=== PATIENT | male | born 1945 | race Caucasian/White ===

== ENCOUNTER 2017-11-11 23:05 | Observation (INO) | payer MEDICARE ==
[~2017-11-11] VITALS: Ht 175.3 cm; Wt 81.6 kg
[~2017-11-11 23:05] MED LIST: CIPRO500 MG PO; TYLENOL WITH C1 EACH PO
[2017-11-11 23:40] LABS: BASOPHILS # (AUTO) 0.1 (0.0-0.1); BASOPHILS % 1.4 % (0.0-1.0); EOSINOPHILS # (AUTO) 0.4 (0.0-0.4); EOSINOPHILS % 4.3 % (0.0-6.0); HEMATOCRIT 38.5 % (38.2-49.6); HEMOGLOBIN 13.2 g/dL (14.0-18.0); LYMPHOCYTES # (AUTO) 1.6 (1.0-3.2); LYMPHOCYTES % 19.2 % (18.0-39.1); MEAN CORPUSCULAR HEMOGLOBIN 29.8 pg (28-32); MEAN CORPUSCULAR HGB CONC 34.3 g/dL (31-35); MEAN CORPUSCULAR VOLUME 86.9 fL (81-99); MONOCYTES # (AUTO) 0.7 (0.2-0.8); MONOCYTES % 8.7 % (4.4-11.3); NEUTROPHILS # (AUTO) 5.6 (2.1-6.9); NEUTROPHILS % 66.2 % (38.7-80.0); PLATELET COUNT 283 x10e3/uL (140-360); RED BLOOD COUNT 4.43 x10e6/uL (4.3-5.7); RED CELL DISTRIBUTION WIDTH 13.6 % (11.7-14.4)
[2017-11-11 23:42] LABS: BILIRUBIN,URINE NEGATIVE (NEGATIVE); CLARITY,URINE CLEAR (CLEAR); COLOR,URINE YELLOW (YELLOW); KETONES,URINE TRACE (NEGATIVE); LEUKOCYTE ESTERASE ,URINE NEGATIVE (NEGATIVE); NITRITE,URINE NEGATIVE (NEGATIVE); PROTEIN,URINE DIPSTICK NEGATIVE (NEGATIVE); URINE UROBILINOGEN 0.2 mg/dL (0.2 - 1)
[2017-11-11] MEDS ORDERED: GABAPENTIN300 MG PO (23:45)
[2017-11-11] MEDS ORDERED: HYDROCHLOROTHIA25 MG PO (23:45)
[2017-11-11] MEDS ORDERED: LISINOPRIL2.5 MG PO (23:45)
[2017-11-11] MEDS ORDERED: TRAZODONE HCL50 MG PO (23:46)
[2017-11-11] MEDS ORDERED: GLIMEPIRIDE2 MG PO (23:47)
[2017-11-11] MEDS ORDERED: OMEPRAZOLE40 MG PO (23:47)
[2017-11-11] MEDS ORDERED: ATORVASTATIN CA20 MG PO (23:47)
[2017-11-11] MEDS ORDERED: PENTASA500 MG PO (23:48)
[2017-11-11] MEDS ORDERED: ASPIR 8181 MG PO (23:49)
[2017-11-11] MEDS ORDERED: LANTUS 3ML100 UNITS/ SC (23:49)
[2017-11-11 23:53] LABS: RBC,URINE 0-5 /HPF (0-5); WBC,URINE (MAN) 0-5 /HPF (0-5)
[2017-11-11] MEDS ORDERED: DIATRIZOATE MEGL/DIATRIZOA SOD 30 ML BTL PO ONE (23:53)
[2017-11-11 23:54] LABS: EPITHELIAL CELLS,URINE RARE /LPF
[2017-11-11 23:57] LABS: ALBUMIN 4.1 g/dL (3.5-5.0); ALBUMIN/GLOBULIN RATIO 1.1 (0.8-2.0); ANION GAP 18.3 mmol/L (8-16); CALCIUM 9.2 mg/dL (8.4-10.2); CREATININE, SERUM 2.12 mg/dL (0.72-1.25); POTASSIUM 4.3 mmol/L (3.5-5.1)
[2017-11-12] VITALS (7 sets, daily range): BP systolic 129–145; BP diastolic 60–71
[2017-11-12 01:27] LABS: INR 1.01; PROTHROMBIN TIME 12.5 seconds (11.9-14.5)
--- NOTE | 2017-11-12 01:30 | Diagnostic Imaging Report ---
EXAM: CT ABDOMEN AND PELVIS without IV CONTRAST INDICATION: Diarrhea, black stools COMPARISON: CT of the abdomen and pelvis April 06, 2016 TECHNIQUE: The abdomen and pelvis were scanned using a multidetector helical scanner. Coronal and sagittal reformations were obtained. Routine protocol performed. IV Contrast: None Oral Contrast: Gastrografin CTDIvol has been reviewed. It is below the limits set by the Radiation Protocol Committee (RPC). FINDINGS: LOWER THORAX: No consolidations LIVER: No masses BILIARY: Normal gallbladder. No ductal dilation. SPLEEN: No masses PANCREAS: No masses ADRENALS: No nodules RIGHT KIDNEY: No nephroureterolithiasis or hydronephrosis. LEFT KIDNEY: No nephroureterolithiasis or hydronephrosis. GI TRACT: Nonspecific mild wall thickening of the mid transverse colon, similar in appearance to 2016. There are a few sigmoid colon diverticula. VESSELS: Moderate atherosclerotic changes of the abdominal aorta with stable focal outpouching up to 2.3 cm. PERITONEUM/RETROPERITONEUM: No free air or fluid LYMPH NODES: No lymphadenopathy REPRODUCTIVE ORGANS: Normal BLADDER: Lobulated contour of the bladder. No wall thickening. SOFT TISSUES: Normal BONES: No suspicious bone lesions. Advanced degenerative changes L4/L5. IMPRESSION: Nonspecific mild wall thickening of the mid transverse colon, similar in appearance to 2016. Few scattered colonic diverticula without evidence of diverticulitis. No bowel obstruction. Signed by: Dr. Kait Vasquez M.D. on 11/12/2017 1:27 AM
--- NOTE | 2017-11-12 01:31 | Diagnostic Imaging Report ---
EXAM: CHEST 2 VIEWS, PA and lateral INDICATION: Diarrhea, black stools COMPARISON: None FINDINGS: LINES/TUBES: None LUNGS: No consolidations or edema. Volume loss of the right lung compared to the left likely from prior surgery. Scarring right lung base. PLEURA: No effusions or pneumothorax. HEART AND MEDIASTINUM: Normal size and contour. BONES AND SOFT TISSUES: No acute findings. Old right-sided rib fractures. IMPRESSION: No acute thoracic abnormality. Signed by: Dr. Kait Vasquez M.D. on 11/12/2017 1:28 AM
[2017-11-12] MEDS ORDERED: ONDANSETRON HCL INJ 2 MG/ML VIAL IV PRN (02:15)
[2017-11-12] MEDS ORDERED: DEXTROSE 50% SYRINGE 50 ML IV PRN (02:15)
[2017-11-12] MEDS ORDERED: SODIUM CHLORIDE 0.9% 1000ML 1,000 ML ONE (02:15)
[2017-11-12] MEDS ORDERED: MORPHINE SULFATE 2 MG/ML SYR IV PRN (02:15)
[2017-11-12] MEDS: SODIUM CHLORIDE 0.9% 1000ML 1,000 ML IV SCH ×3 (02:19→17:50)
--- OUTSIDE RECORDS SUMMARY | 2017-11-12 03:15 | XMS REPORT ---
Author [facility] Address Unknown Phone Unavailable Care Team Providers Care Public Defender Name Role Phone МАРИНА RIVERA Unavailable Unavailable Problems This patient has no known problems. Allergies, Adverse Reactions, Alerts This patient has no known allergies or adverse reactions. Medications This patient has no known medications. Results Test Description Test Time Test Comments Text Results Atomic Results Result Comments CHEST 2 VIEWS [place] [address] Patient Name: JUAN MCKEON MR #: [id number] : 1945 Age/Sex: 72/M Req #: [id number] Adm Physician: Ordered by: МАРИНА RIVERA MD Report #: [id number] Location: ER Room/Bed: Procedure: [id number] DX/CHEST 2 VIEWS Exam Date: Exam Time: REPORT STATUS: Signed EXAM: CHEST 2 VIEWS, PA and lateral INDICATION: Diarrhea, black stools COMPARISON: None FINDINGS: LINES/TUBES: None LUNGS: No consolidations or edema. Volume loss of the right lung compared to the left likely from prior surgery. Scarring right lung base. PLEURA: No effusions or pneumothorax. HEART AND MEDIASTINUM: Normal size and contour. BONES AND SOFT TISSUES: No acute findings. Old right-sided rib fractures. IMPRESSION: No acute thoracic abnormality. Signed by: Dr. Alba Salguero M.D. on 11/12/2017 1:28 AM Dictated By: ALBA SALGUERO MD 7 Transcribed By: AG on 11/12/17127 COPY TO: МАРИНА RIVERA MD CT ABDOMEN/PELVIS WO [place] [address] Patient Name: JUAN MCKEON MR #: [id number] : 1945 Age/Sex: 72/M Req #: [id number] Adm Physician: Ordered by: МАРИНА RIVERA MD Report #: [id number] Location: ER Room/Bed: Procedure: [id number] CT/CT ABDOMEN/PELVIS WO Exam Date: Exam Time: REPORT STATUS: Signed EXAM: CT ABDOMEN AND PELVIS without IV CONTRAST INDICATION: Diarrhea, black stools COMPARISON: CT of the abdomen and pelvis April 06, 2016 TECHNIQUE: The abdomen and pelvis were scanned using a multidetector helical scanner. Coronal and sagittal reformations were obtained. Routine protocol performed. IV Contrast: None Oral Contrast: Gastrografin CTDIvol has been reviewed. It is below the limits set by the Radiation Protocol Committee (RPC). FINDINGS: LOWER THORAX: No consolidations LIVER: No masses BILIARY: Normal gallbladder. No ductal dilation. SPLEEN: No masses PANCREAS: No masses ADRENALS: No nodules RIGHT KIDNEY: No nephroureterolithiasis or hydronephrosis. LEFT KIDNEY: No nephroureterolithiasis or hydronephrosis. GI TRACT: Nonspecific mild wall thickening of the mid transverse colon, similar in appearance to 2016. There are a few sigmoid colon diverticula. VESSELS: Moderate atherosclerotic changes of the abdominal aorta with stable focal outpouching up to 2.3 cm. PERITONEUM/RETROPERITONEUM: No free air or fluid LYMPH NODES: No lymphadenopathy REPRODUCTIVE ORGANS: Normal BLADDER: Lobulated contour of the bladder. No wall thickening. SOFT TISSUES: Normal BONES: No suspicious bone lesions. Advanced degenerative changes L4/L5. IMPRESSION: Nonspecific mild wall thickening of the mid transverse colon, similar in appearance to 2016. Few scattered colonic diverticula without evidence of diverticulitis. No bowel obstruction. Signed by: Dr. Alba Salguero M.D. on 11/12/2017 1:27 AM Dictated By: ALBA SALGUERO MD 6 Transcribed By: AG on 11/12/17126 COPY TO: МАРИНА RIVERA MD
[2017-11-12] MEDS ORDERED: PANTOPRAZOLE SOD 40 MG TABEC PO SCH (07:30)
[2017-11-12] MEDS: INSULIN REGULAR, HUMAN 100 UNIT/1 ML 3ML VIAL SQ SCH ×4 (07:30→20:37)
[2017-11-12] MEDS ORDERED: HYDROCHLOROTHIAZIDE 25 MG TAB PO SCH (09:00)
[2017-11-12] MEDS ORDERED: GABAPENTIN 300 MG CAP PO SCH (15:00)
[2017-11-12] MEDS ORDERED: CLONIDINE HCL 0.1 MG TAB PO PRN (18:15)
[2017-11-12] MEDS: GABAPENTIN 300 MG CAP PO SCH (20:37)
[2017-11-12] MEDS ORDERED: ATORVASTATIN 20 MG TAB PO SCH (21:00)
[2017-11-12] MEDS ORDERED: INSULIN DETEMIR 100 UNIT/ML PEN SQ SCH (21:00)
[2017-11-12] MEDS ORDERED: TRAZODONE HCL 50 MG TAB PO SCH (21:00)
[2017-11-12] MEDS ORDERED: ATORVASTATIN 40 MG TAB PO SCH (21:00)
[2017-11-13] VITALS (8 sets, daily range): BP systolic 130–155; BP diastolic 63–78
[2017-11-13] MEDS: SODIUM CHLORIDE 0.9% 1000ML 1,000 ML IV SCH (07:15)
[2017-11-13 07:22] LABS: BASOPHILS # (AUTO) 0.1 (0.0-0.1); BASOPHILS % 1.8 % (0.0-1.0); EOSINOPHILS # (AUTO) 0.4 (0.0-0.4); EOSINOPHILS % 7.2 % (0.0-6.0); HEMATOCRIT 36.2 % (38.2-49.6); HEMOGLOBIN 12.2 g/dL (14.0-18.0); LYMPHOCYTES # (AUTO) 1.2 (1.0-3.2); MEAN CORPUSCULAR HEMOGLOBIN 29.8 pg (28-32); MEAN CORPUSCULAR HGB CONC 33.7 g/dL (31-35); MEAN CORPUSCULAR VOLUME 88.3 fL (81-99); MONOCYTES # (AUTO) 0.5 (0.2-0.8); MONOCYTES % 9.7 % (4.4-11.3); NEUTROPHILS # (AUTO) 3.3 (2.1-6.9); NEUTROPHILS % 59.1 % (38.7-80.0); PLATELET COUNT 254 x10e3/uL (140-360); RED CELL DISTRIBUTION WIDTH 13.8 % (11.7-14.4)
[2017-11-13] MEDS: INSULIN REGULAR, HUMAN 100 UNIT/1 ML 3ML VIAL SQ SCH ×2 (07:30→11:30)
[2017-11-13] MEDS ORDERED: PANTOPRAZOLE SOD 40 MG TABEC PO SCH (07:30)
[2017-11-13 07:38] LABS: CALCIUM 8.9 mg/dL (8.4-10.2); CREATININE, SERUM 1.42 mg/dL (0.72-1.25); MAGNESIUM 1.6 MG/DL (1.3-2.1)
[2017-11-13] MEDS ORDERED: GLIMEPIRIDE 2 MG TAB PO SCH (08:00)
[2017-11-13] MEDS ORDERED: LISINOPRIL 2.5 MG TAB PO SCH (09:00)
[2017-11-13] MEDS ORDERED: MESALAMINE 500 MG CAPCR PO SCH (09:00)
[2017-11-13] MEDS ORDERED: HYDROCHLOROTHIAZIDE 25 MG TAB PO SCH (09:00)
[2017-11-13] MEDS ORDERED: ASPIRIN 81 MG CHEW TAB PO SCH (09:00)
[2017-11-13] MEDS ORDERED: MESALAMINE 400 MG CAP PO SCH (09:00)
[2017-11-13] MEDS: GABAPENTIN 300 MG CAP PO SCH (09:05)
--- NOTE | 2017-11-13 16:17 | Discharge Summary ---
PRIMARY CARE DOCTOR: Dr. Pattie Lopez FINAL DIAGNOSIS: Acute renal failure due to diarrhea and dehydration. SECONDARY DIAGNOSES 1. Colitis, otherwise unspecified. 2. Diabetes. CONSULTANTS: None. PROCEDURES/STUDIES PERFORMED: Computerized tomography scan of the abdomen and pelvis. HISTORY: Per H and P. HOSPITAL COURSE: The patient was admitted and hydrated. His creatinine improved. CT showed transverse colon nonspecific wall thickening unchanged from 2016. The patient has seen a GI specialist, and is on daily mesalamine. He will continue that. Antibiotic is not indicated at this time. The patient only had 2 small loose stools yesterday and only 1 today. The patient will follow up with PCP and his GI doctor. I have updated his primary care doctor as well. CONDITION ON DISCHARGE: Stable. DISCHARGE MEDICATIONS: Please see medication reconciliation form. The patient was seen and examined today. VERONICA COY M.D. Job#: [id number] RI cc:PATTIE LOPEZ MD
== END 2017-11-13 16:11 | disposition home or self-care (01) ==
LOC: ER 23:05 → MED/SURG3 11-12 03:12
PROVIDERS: ADMIT Internal Medicine; ATTEND Internal Medicine
DX: N17.9 Acute kidney failure, unspecified (principal); R19.7 Diarrhea, unspecified; E11.9 Type 2 diabetes mellitus without complications; E78.5 Hyperlipidemia, unspecified; E86.0 Dehydration; K52.9 Noninfective gastroenteritis and colitis, unspecified
CPT/HCPCS: 36415 ×3; 71046; 74176; 80048; 80053; 81001; 82150; 82270; 82948 ×2; 83690; 83735; 85025 ×2; 85610; 85730; 86850; 86900 ×2; 96361; 99284; G0378 ×2; J2270; J7030

== ENCOUNTER 2019-02-11 14:14 | Emergency (ER) | payer MEDICARE ==
[~2019-02-11] VITALS: Ht 175.3 cm; Wt 81.6 kg
[~2019-02-11 14:14] MED LIST changes: +ASPIR 8181 MG PO; +ATORVASTATIN CA20 MG PO; +GABAPENTIN300 MG PO; +GLIMEPIRIDE2 MG PO; +HYDROCHLOROTHIA25 MG PO; +LANTUS 3ML100 UNITS/ SC; +LISINOPRIL2.5 MG PO; +OMEPRAZOLE40 MG PO; +PENTASA500 MG PO; +TRAZODONE HCL50 MG PO
--- OUTSIDE RECORDS SUMMARY | 2019-02-11 14:17 | XMS REPORT | Clinical Summary ---
Author Author [facility] Address Unknown Phone Unavailable Care Team Providers Care Brick Grader Name Role Phone Trinity Reagan PCP Unavailable Allergies No Known Allergies Medications End Date Status Medication Sig Dispensed Refills Start Date Active aspirin 81 MG EC tablet Take 81 mg by 0 mouth daily. Active gabapentin (NEURONTIN) Take 300 mg 0 300 MG capsule by mouth 3 (three) times daily. Active hydrochlorothiazide Take 50 mg by 0 (HYDRODIURIL) 25 MG mouth daily. tablet Active HYDROcodone-acetaminophen Take 1 tablet 0 (NORCO 7.5-325) 7.5-325 by mouth mg per tablet every 6 (six) hours as needed for Pain. Active insulin glargine (LANTUS) Inject 40 0 100 unit/mL injection Units subcutaneousl y nightly. Use as directed Active lansoprazole (PREVACID) Take 15 mg by 0 15 MG capsule mouth daily. Active lisinopril Take 2.5 mg 0 (PRINIVIL,ZESTRIL) 2.5 MG by mouth tablet daily. Active metFORMIN (GLUCOPHAGE) Take 1,000 mg 0 1000 MG tablet by mouth 2 (two) times daily with breakfast and dinner. Active multivitamin per tablet Take 1 tablet 0 by mouth daily. Active pioglitazone (ACTOS) 15 Take 15 mg by 0 MG tablet mouth daily. Active pravastatin (PRAVACHOL) Take 40 mg by 0 40 MG tablet mouth daily. Active topiramate (TOPAMAX) 25 Take 25 mg by 0 MG tablet mouth 2 (two) times daily. Active traZODone (DESYREL) 50 MG Take 50 mg by 0 tablet mouth nightly. Active tiZANidine (ZANAFLEX) 4 Take 1 tablet 40 tablet 1 08/28/201 MG tablet (4 mg total) 5 by mouth nightly. Active Problems Problem Noted Date Non compliance w medication regimen 04/28/2018 Essential hypertension 04/28/2018 Type 2 diabetes mellitus with complication, with long-term current use of 04/28/2018 insulin Hyperglycemia 04/28/2018 Spinal stenosis, lumbar region, with neurogenic claudication 08/28/2014 Encounters Care Team Description Date Type Specialty Sydney, Zehra Navarrete DO Hyperglycemia (Primary Dx); Type 2 diabetes mellitus with complication, with long-term current use of insulin (HCC); Essential hypertension; Non compliance w medication regimen 04/28/2018 Emergency Emergency Medicine 04/28/2018 Orders Only General Internal Medicine after 02/10/2018 Social History Date Tobacco Use Types Packs/Day Years Used Never Smoker Smokeless Tobacco: Never Used Alcohol Use Drinks/Week oz/Week Comments No Sex Assigned at Date Recorded Not on file Industry Job Start Date Occupation Not on file Not on file Not on file Travel End Travel History Travel Start No recent travel history available. Last Filed Vital Signs Time Taken Vital Sign Reading 04/28/2018 1:53 PM CDT Blood Pressure 157/66 04/28/2018 1:53 PM CDT Pulse 68 04/28/2018 11:52 AM CDT Temperature 36.4 C (97.5 F) 04/28/2018 1:53 PM CDT Respiratory Rate 18 04/28/2018 1:53 PM CDT Oxygen Saturation 97% - Inhaled Oxygen - Concentration 04/28/2018 11:52 AM CDT Weight 78.9 kg (174 lb) 04/28/2018 11:52 AM CDT Height 175.3 cm (5' 9") 04/28/2018 11:52 AM CDT Body Mass Index 25.7 Plan of Treatment Not on file Implants Device Identifier Shelf Expiration Date Model / Serial / Lot Implanted Type Area Manufactur er 09/01/2015 [id number] / / [id number] Sealant,Floseal Hemostatic Matrix Cement/Tuan N/A: Back SALDIVAR 10ml - [id number] ler/[employer]hes[employer] Implanted: Qty: 1 on 08/28/2014 by Dain Ang MD [employer] Procedures Comments Procedure Name Priority Date/Time Associated Diagnosis POCT-GLUCOSE METER Routine 04/28/2018 1:26 PM CDT BASIC METABOLIC PANEL (7) STAT 04/28/2018 1:25 PM CDT ECG 12-LEAD Routine 04/28/2018 12:40 PM CDT Procedure Note - Interface, External Ris In - 04/28/2018 12:47 PM CDT Ventricula r Rate 75 BPM Atrial Rate 75 BPM P-R Interval 172 ms QRS Duration 84 ms Q-T Interval 404 ms QTC Calculatio n(Bazett) 451 ms P Mesa 47 degrees R Mesa 52 degrees T Mesa 62 degrees Normal sinus rhythm Normal ECG No previous ECGs available ECG 12-LEAD STAT 04/28/2018 12:40 PM CDT URINALYSIS W/ MICROSCOPIC STAT 04/28/2018 12:15 PM CDT BLOOD GAS, VENOUS STAT 04/28/2018 12:02 PM CDT CBC W/PLT COUNT & AUTO STAT 04/28/2018 DIFFERENTIAL 12:01 PM CDT KETONE, BLOOD STAT 04/28/2018 12:01 PM CDT PHOSPHORUS STAT 04/28/2018 12:01 PM CDT MAGNESIUM STAT 04/28/2018 12:01 PM CDT BASIC METABOLIC PANEL (7) STAT 04/28/2018 12:01 PM CDT CBC W/PLT COUNT & AUTO STAT 04/28/2018 DIFFERENTIAL 12:01 PM CDT POCT-GLUCOSE METER Routine 04/28/2018 11:52 AM CDT after 02/10/2018 Results * POC-Glucose meter (04/28/2018 1:26 PM CDT) Only the most recent of 2 results within the time period is included. POC-Glucose Meter >500 ()Comment: OUTSIDE 70 - 110 mg/dL [facility] MEASURING RANGETESTED AT [address] [address] Specimen Blood Performing Organization Address City/State/Zipcode Phone Number [address] [address] [facility] * Basic metabolic panel (Na, K+, Cl, CO2, Glu, Ca, BUN, Cr) (04/28/2018 1:25 PM CDT) Only the most recent of 2 results within the time period is included. Sodium 128 (L) 136 - 145 meq/L [facility] Potassium 4.1 3.5 - 5.1 meq/L [facility] Chloride 95 (L) 98 - 107 meq/L [facility] CO2 25 22 - 29 meq/L [facility] BUN 32 (H) 7 - 21 mg/dL [facility] Creatinine 1.71 (H) 0.57 - 1.25 mg/dL [facility] Glucose 541 (HH) 70 - 105 mg/dL [facility] Calcium 8.7 8.4 - 10.2 mg/dL [facility] EGFR 40Comment: ESTIMATED GFR IS mL/min/1.73 sq m [facility] NOT ACCURATE CREATININE [facility] CLEARANCE IN PREDICTING GLOMERULAR FILTRATION RATE. ESTIMATED GFR IS NOT APPLICABLE FOR DIALYSIS PATIENTS. Specimen Blood Performing Organization Address City/State/Zipcode Phone Number [facility] [address] [place] [address] [facility] * ECG 12 lead (04/28/2018 12:40 PM CDT) Specimen Narrative Performed At Ventricular Rate 75 BPM GE MUSE Atrial Rate 75 BPM P-R Interval 172 ms QRS Duration 84 ms Q-T Interval 404 ms QTC Calculation(Bazett) 451 ms P Mesa 47 degrees R Mesa 52 degrees T Mesa 62 degrees Normal sinus rhythm Normal ECG No previous ECGs available Confirmed by Baldomero MARINO, RALEIGH ([id number]) on 04/28/2018 2:20:36 PM Procedure Note Interface, External Ris In - 04/28/2018 2:20 PM CDT Ventricular Rate 75 BPM Atrial Rate 75 BPM P-R Interval 172 ms QRS Duration 84 ms Q-T Interval 404 ms QTC Calculation(Bazett) 451 ms P Mesa 47 degrees R Mesa 52 degrees T Mesa 62 degrees Normal sinus rhythm Normal ECG No previous ECGs available Confirmed by Baldomero MARINO BASANT ([id number]) on 04/28/2018 2:20:36 PM Performing Organization Address City/[facility] Phone Number MIKAYLA [facility] * Urinalysis w/Microscopic (04/28/2018 12:15 PM CDT) Color, UA Yellow [facility] Clarity, UA Clear [facility] Specific [place], UA 1.017 1.001 - 1.035 [facility] pH, UA 6.0 5.0 - 8.0 [facility] Protein, UA Negative Negative [facility] Glucose, UA >1000 mg/dL (A) Negative [facility] Ketones, UA Negative Negative [facility] Bilirubin, UA Negative Negative [facility] Blood, UA Negative Negative [facility] Nitrite, UA Negative Negative [facility] Leukocytes, UA Negative Negative [facility] Urobilinogen, UA 0.2 0.2 - 1.0 mg/dL [facility] RBC, UA <1 /HPF [facility] WBC, UA <1 /HPF [facility] Specimen Source [facility] Specimen Urine Performing Organization Address City/[facility] Phone Number [facility] [address] [place] [address] [facility] * Blood gas, venous (04/28/2018 12:02 PM CDT) pH, [place] 7.40 7.32 - 7.42 [facility] pCO2, [place] 48 41 - 51 mmHg [facility] pO2, [place] 43 (H) 25 - 40 mmHg [facility] O2 Sat, [place] 78.7 (H) 40.0 - 70.0 % [facility] HCO3, [place] 29 21 - 29 mmol/L [facility] Base Excess, [place] 3.3 (H) -2.0 - 3.0 mmol/L [facility] Patient Temperature 37.0 C [facility] FIO2 100.0 % [facility] Specimen Blood Performing Organization Address City/State/Zipcode Phone Number [facility] [address] [place] [address] [facility] * CBC with platelet count + automated diff (04/28/2018 12:01 PM CDT) WBC 7.9 3.5 - 10.5 K/L [facility] RBC 4.34 (L) 4.63 - 6.08 M/L [facility] Hemoglobin 12.6 (L) 13.7 - 17.5 GM/DL [facility] Hematocrit 37.9 (L) 40.1 - 51.0 % [facility] MCV 87.3 79.0 - 92.2 fL [facility] MCH 29.0 25.7 - 32.2 pg [facility] MCHC 33.2 32.3 - 36.5 GM/DL [facility] RDW 12.0 11.6 - 14.4 % [facility] Platelets 315 150 - 450 K/CU MM [facility] MPV 9.9 9.4 - 12.4 fL [facility] nRBC 0 0 - 0 /100 WBC [facility] % Neutros 70 % [facility] % Lymphs 16 % [facility] % Monos 7 % [facility] % Eos 4 % [facility] % Baso 1 % [facility] # Neutros 5.58 (H) 1.78 - 5.38 K/L [facility] # Lymphs 1.29 (L) 1.32 - 3.57 K/L [facility] # Monos 0.56 0.30 - 0.82 K/L [facility] # Eos 0.34 0.04 - 0.54 K/L [facility] # Baso 0.08 0.01 - 0.08 K/L [facility] Immature 1 0 - 1 % [facility] Granulocytes-Relative [facility] Specimen Blood Performing Organization Address City/State/Zipcode Phone Number [address] * Phosphorus (04/28/2018 12:01 PM CDT) Phosphorus 3.7 2.3 - 4.7 mg/dL [facility] Specimen Blood Performing Organization Address City/State/[facility] Phone Number [address] * Magnesium (04/28/2018 12:01 PM CDT) Magnesium 1.6 1.6 - 2.6 mg/dL [facility] Specimen Blood Performing Organization Address City/State/Zipcode Phone Number [address] * Ketones, blood (04/28/2018 12:01 PM CDT) Ketones, Blood 0.1 <0.4 mmol/L [facility] Specimen Blood Performing Organization Address City/State/Zipcode Phone Number [id number] [place] [address] [phone] after 02/10/2018 Insurance Payer Benefit Subscriber ID Type Phone Address Plan / Group [employer] xxxxxxxxxxx MEDICARE ADV Advance Directives For more information, please contact: [address] [address] Date Inactivated Comments Code Status Date Activated 08/28/2014 7:11 PM Full Code 08/28/2014 6:08 AM This code status was determined by: Patient
[2019-02-11] MEDS ORDERED: ACETAMINOPHEN/CODEINE 300MG - 30MG TAB PO NR (14:30)
--- NOTE | 2019-02-11 15:03 | Diagnostic Imaging Report ---
RIGHT KNEE - 3 Images HISTORY: Pain COMPARISON: None available. FINDINGS: Bones: No acute displaced fracture. No aggressive osseous lesion. Moderate enthesophyte at the superior pole of the patella. Joints: Tricompartmental minimal marginal osteophytosis with mild narrowing of the medial compartment. Soft tissues: The soft tissues appear unremarkable. IMPRESSION: 1. No acute radiographic abnormality. 2. 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 3. Chronic distal quadriceps enthesopathy. Signed by: Dr. German Real D.O., M.M.M. on 02/11/2019 3:00 PM
== END 2019-02-11 16:27 | disposition home or self-care (01) ==
LOC: ER 14:14
DX: M25.562 Pain in left knee (principal); S83.92XA Sprain of unspecified site of left knee, initial encounter; R26.2 Difficulty in walking, not elsewhere classified; X50.1XXA Overexertion from prolonged static or awkward postures, initial encounter; Y92.008 Other place in unspecified non-institutional (private) residence as the place of occurrence of the external cause; I10 Essential (primary) hypertension; E11.9 Type 2 diabetes mellitus without complications; E78.5 Hyperlipidemia, unspecified
CPT/HCPCS: 99283

== ENCOUNTER 2020-05-03 12:32 | Emergency (ER) | payer MEDICARE ==
[2020-05-03 12:58] LABS: BASOPHILS # (AUTO) 0.1 (0.0-0.1); BASOPHILS % 1.5 % (0.0-1.0); EOSINOPHILS # (AUTO) 0.3 (0.0-0.4); EOSINOPHILS % 4.1 % (0.0-6.0); HEMATOCRIT 47.1 % (38.2-49.6); HEMOGLOBIN 15.4 g/dL (14.0-18.0); LYMPHOCYTES % 26.9 % (18.0-39.1); MEAN CORPUSCULAR HEMOGLOBIN 29.2 pg (28-32); MEAN CORPUSCULAR HGB CONC 32.7 g/dL (31-35); MEAN CORPUSCULAR VOLUME 89.4 fL (81-99); MONOCYTES # (AUTO) 0.7 (0.2-0.8); MONOCYTES % 9.1 % (4.4-11.3); NEUTROPHILS # (AUTO) 4.3 (2.1-6.9); NEUTROPHILS % 57.9 % (38.7-80.0); PLATELET COUNT 326 x10e3/uL (140-360); RED BLOOD COUNT 5.27 x10e6/uL (4.3-5.7); RED CELL DISTRIBUTION WIDTH 13.7 % (11.7-14.4)
[2020-05-03 13:13] LABS: INR 0.89; PARTIAL THROMBOPLASTIN TIME 27.6 seconds (23.8-35.5); PROTHROMBIN TIME 12.5 seconds (11.9-14.5)
[2020-05-03 13:17] LABS: ALBUMIN 4.1 g/dL (3.5-5.0); ALBUMIN/GLOBULIN RATIO 0.9 (0.8-2.0); ANION GAP 15.2 mmol/L (8-16); CREATININE, SERUM 1.55 mg/dL (0.72-1.25); POTASSIUM 4.2 mmol/L (3.5-5.1)
[2020-05-03 13:37] LABS: CREATINE KINASE MB 3.6 ng/mL (0-5.0)
--- OUTSIDE RECORDS SUMMARY | 2020-05-03 13:49 | XMS REPORT | Continuity of Care Document ---
Author Author [facility] t Organization [facility] Address [address] [place] [address] Phone Unavailable Care Team Providers Care Cushion Assembler Name Role Phone NONSTAFF PCP Unavailable SWEET, A LAIRD Attphys Unavailable EARNESTINE, JOSE F BREA Attphys Unavailable MANEEVESE, V МАРИНА Attphys Unavailable Payers Payer Name Policy Type Policy Number Effective Date Expiration Date Kia schneider [employer] Medicare Advantage [id number] 2014 00:0 0:00 [facility] Problems Condition Name Condition Details Condition Category Status Onset Date Resolution Date Last Treatment Date Treating Clinician Comments Source Non compliance w medication regimen Non compliance w medication regimen Disease Active 2018-04-28 00:00:00 [facility] Essential hypertension Essential hypertension Disease Active 2018-04-28 00:00:00 [facility] Type 2 diabetes mellitus with complicati on, with long-term current use of insulin Type 2 diabetes mellitus with complicati on, with long-term current use of insulin Disease Active 2018-04-28 00:00:00 [facility] Hyperglycemia Hyperglycemia Disease Active 2018-04-28 00:00:00 [facility] Spinal stenosis, lumbar region, with neurogenic claudi cation Spinal stenosis, lumbar region, with neurogenic claudication Disease Active 2014 00:00:00 [facility] Allergies, Adverse Reactions, Alerts This patient has no known allergies or adverse reactions. Social History Social Habit Start Date Stop Date Quantity Comments Source Sex Assigned At [facility] Smoking Status Start Date Stop Date Source Never smoker [facility] Medications Ordered Medication Name Filled Medication Name Start Date Stop Da te Current Medication? Ordering Clinician Indication Dosage Frequency Signature (SIG) Comments Components Source tiZANidine (ZANAFLEX) 4 MG tablet 2014-08-28 00:00:00 Yes 4mg QD Take 1 tablet (4 mg total) by mouth nightly. [facility] pravastatin (PRAVACHOL) 40 MG tablet 2014-08-24 09:01:22 Ye s 40mg QD Take 40 mg by mouth daily. [facility] topiramate (TOPAMAX) 25 MG tablet 2014-08-24 09:01:22 Yes 25mg Q.5D Take 25 mg by mouth 2 (two) times daily. [facility] traZODone (DESYREL) 50 MG tablet 2014-08-24 09:01:22 Yes 50mg QD Take 50 mg by mouth nightly. [facility] aspirin 81 MG EC tablet 2014-08-24 09:01:21 Yes 81mg QD Take 81 mg by mouth daily. [facility] gabapentin (NEURONTIN) 300 MG capsule 2014-08-24 09:01:21 Yes 300mg Q.[id number] Take 300 mg by mouth 3 (three) times daily. [facility] hydrochlorothiazide (HYDRODIURIL) 25 MG tablet 2014-08-24 09:01: 21 Yes 50mg QD Take 50 mg by mouth daily. [facility] HYDROcodone-acetaminophen (NORCO 7.5-325) 7.5-325 mg per tab let 2014-08-24 09:01:21 Yes 1{tbl} Take 1 tab let by mouth every 6 (six) hours as needed for Pain. [facility] insulin glargine (LANTUS) 100 unit/mL injection 2014-08-24 09:01 :21 Yes 40U QD Inject 40 Units subcutaneously nightly. Use as directe d [facility] lansoprazole (PREVACID) 15 MG capsule 2014-08-24 09:01:21 Y es 15mg QD Take 15 mg by mouth daily. [facility] lisinopril (PRINIVIL,ZESTRIL) 2.5 MG tablet 2014-08-24 09:01:21 Yes 2.5mg QD Take 2.5 mg by mouth daily. [facility] metFORMIN (GLUCOPHAGE) 1000 MG tablet 2014-08-24 09:01:21 Y es 1000mg Take 1,000 mg by mouth 2 (two) times daily with breakfast and dinner. [facility] multivitamin per tablet 2014-08-24 09:01:21 Yes 1{tbl} QD Take 1 tablet by mouth daily. [facility] pioglitazone (ACTOS) 15 MG tablet 2014-08-24 09:01:21 Yes 15mg QD Take 15 mg by mouth daily. [facility] Aspirin (Aspir 81) 81 Mg Tablet. Aspirin (Aspir 81) 81 Mg Tablet. Yes 81 Daily [facility] Atorvastatin Calcium 20 Mg Tablet Atorvastatin Calcium 20 Mg Tablet Yes 80 Bedtime [facility] Gabapentin 300 Mg Capsule Gabapentin 300 Mg Capsule Yes 600 Three Times A Day [facility] Glimepiride 2 Mg Tablet Glimepiride 2 Mg Tablet Yes 2 Daily [facility] Hydrochlorothiazide 25 Mg Tablet Hydrochlorothiazide 25 Mg Tablet Yes 50 Daily [facility] Insulin Glargine (Lantus 3ML Pen) 100 Units/1 Ml Inj I nsulin Glargine (Lantus 3ML Pen) 100 Units/1 Ml Inj Yes 40 Bedtime [facility] Lisinopril 2.5 Mg Tablet Lisinopril 2.5 Mg Tablet Yes 5 Daily [facility] Mesalamine (Pentasa) 500 Mg Capcr Mesalamine (Pentasa) 500 Mg Capcr Yes 800 Daily [facility] Omeprazole 40 Mg Capsule. Omeprazole 40 Mg Capsule. Yes 20 Daily [facility] Trazodone Hcl 50 Mg Tablet Trazodone Hcl 50 Mg Tablet Yes 150 Bedtime [facility] Acetaminophen With Codeine (Tylenol With Codeine #3 Tablet) 1 Each Tablet, 300 Mg Oral Acetaminophen With Codeine (Tylenol With Codeine #3 Tablet) 1 Each Tablet, 300 Mg Oral 2017-11-11 00:00:00 No 300 Ever y 4 Hours [facility] Ciprofloxacin Hcl (Cipro) 500 Mg Tablet, 500 Mg Oral C iprofloxacin Hcl (Cipro) 500 Mg Tablet, 500 Mg Oral 2017-11-11 00:00:00 No 500 Every 12 Hours [facility] Procedures This patient has no known procedures. Encounters Start Date/Time End Date/Time [facility] ID Source 2019-02-11 14:14:00 2019-02-11 16:27:00 Departed Emergency Room 1 ABDI HELM [facility] [id number] [facility] 2017-11-12 03:12:00 2017-11-13 16:11:00 Discharged Inpatient (obs) ER MIGUELTHOMASМАРИНА [facility] [id number] [facility] Results Test Description Test Time Test Comments Results Result Comments Source KNEE RIGHT THREE VIEWS 2019-02-11 14:58:00 [place] [address] Patient Name: JUAN MCKEON MR #: [id number] : 1945 Age/Sex: 73/M Req #: [id number] Adm Physician: Ordered by: ABDI HELM MD Report #: [id number] Location: ER Room/Bed: Procedure: [id number] DX/KNEE RIGHT THREE VIEWS Exam Date: 02/11/19 Exam Time: 1445 REPORT STATUS: Signed RIGHT KNEE - 3 Images HISTORY: Pain COMPARISON: None available. FINDINGS: Bones: No acute displaced fracture. No aggressive osseous lesion. Moderate enthesophyte at the superior pole of the patella. Joints: Trico mpartmental minimal marginal osteophytosis with mild narrowing of the medial compartment. Soft tissues: The soft tissues appear unremarkable. IMPRESSION: 1. No acute radiographic abnormality. 2. 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 3. Chronic distal quadriceps enthesopathy. Signed by: Dr. German Real D.O., M.M.M. on 02/11/2019 3:00 PM Dictated By: GERMAN REAL DO 99 Transcribed By: AG on 02/11/19 1500 COPY TO: ABDI HELM MD BASIC METABOLIC PANEL 2018-04-28 13:57:00 Test Item SODIUM (BEAKER) (test code = 381) 128 meq/L 136-145 L POTASSIUM (BEAKER) (test code = 379) 4.1 meq/L 3.5-5.1 CHLORIDE (BEAKER) (test code = 382) 95 meq/L 98-107 L CO2 (BEAKER) (test code = 355) 25 meq/L 22-29 BLOOD UREA NITROGEN (BEAKER) (test code = 354) 32 mg/dL 7-21 H CREATININE (BEAKER) (test code = 358) 1.71 mg/dL 0.57-1.25 H GLUCOSE RANDOM (BEAKER) (test code = 652) 541 mg/dL 70-105 HH CALCIUM (BEAKER) (test code = 697) 8.7 mg/dL 8.4-10.2 EGFR (BEAKER) (test code = 1092) 40 mL/min/1.73 sq m ESTIMATED GFR IS NOT ACCURATE CREATININE CLEARANCE IN PREDICTING GLOMERULAR FILTRATION RATE. ESTIMATED GFR IS NOT APPLICABLE FOR DIALYSIS PATIENTS. URINALYSIS W/ [id number] 13:45:00* Test Item Value Reference Range Interpretation Comments COLOR (BEAKER) (test code = 470) Yellow CLARITY (BEAKER) (test code = 469) Clear SPECIFIC GRAVITY UA (BEAKER) (test code = 468) 1.017 1.001-1 .035 PH UA (BEAKER) (test code = 467) 6.0 5.0-8.0 PROTEIN UA (BEAKER) (test code = 464) Negative Negative GLUCOSE UA (BEAKER) (test code = 365) >1000 mg/dL Negative A KETONES UA (BEAKER) (test code = 371) Negative Negative BILIRUBIN UA (BEAKER) (test code = 462) Negative Negative BLOOD UA (BEAKER) (test code = 461) Negative Negative NITRITE UA (BEAKER) (test code = 465) Negative Negative LEUKOCYTE ESTERASE UA (BEAKER) (test code = 466) Negative Negat shazia UROBILINOGEN UA (BEAKER) (test code = 463) 0.2 mg/dL 0.2-1.0 RBC UA (BEAKER) (test code = 519) < /HPF WBC UA (BEAKER) (test code = 520) < /HPF SOURCE(BEAKER) (test code = 2795) POCT-GLUCOSE [id number] 13:27:00* Test Item Value Reference Range Interpretation Comments POC-GLUCOSE METER (BEAKER) (test code = 1538) > mg/dL 70-110 HH OUTSIDE MEASURING RANGETESTED AT [facility] [address] [facility] [address] BASIC METABOLIC [id number] 12:39:00* Test Item Value Reference Range Interpretation Comments SODIUM (BEAKER) (test code = 381) 123 meq/L 136-145 L POTASSIUM (BEAKER) (test code = 379) 4.4 meq/L 3.5-5.1 CHLORIDE (BEAKER) (test code = 382) 89 meq/L 98-107 L CO2 (BEAKER) (test code = 355) 23 meq/L 22-29 BLOOD UREA NITROGEN (BEAKER) (test code = 354) 33 mg/dL 7-21 H CREATININE (BEAKER) (test code = 358) 1.95 mg/dL 0.57-1.25 H GLUCOSE RANDOM (BEAKER) (test code = 652) 680 mg/dL 70-105 HH CALCIUM (BEAKER) (test code = 697) 9.4 mg/dL 8.4-10.2 EGFR (BEAKER) (test code = 1092) 34 mL/min/1.73 sq m ESTIMATED GFR IS NOT ACCURATE CREATININE CLEARANCE IN PREDICTING GLOMERULAR FILTRATION RATE. ESTIMATED GFR IS NOT APPLICABLE FOR DIALYSIS PATIENTS. [id number] 12:31:00* Test Item Value Reference Range Interpretation Comments PHOSPHORUS (BEAKER) (test code = 604) 3.7 mg/dL 2.3-4.7 [id number] 12:31:00* Test Item Value Reference Range Interpretation Comments MAGNESIUM (BEAKER) (test code = 627) 1.6 mg/dL 1.6-2.6 KETONE, [id number] 12:23:00* Test Item Value Reference Range Interpretation Comments KETONES, BLOOD (BEAKER) (test code = 1103) 0.1 mmol/L <0.4 BLOOD GAS, [id number] 12:13:00* Test Item Value Reference Range Interpretation Comments PH VENOUS (BEAKER) (test code = 701) 7.40 7.32-7.42 PCO2 VENOUS (BEAKER) (test code = 755) 48 mmHg 41-51 PO2 VENOUS (BEAKER) (test code = 702) 43 mmHg 25-40 H O2 SATURATION VENOUS (BEAKER) (test code = 703) 78.7 % 40.0-7 0.0 H HCO3 VENOUS (BEAKER) (test code = 705) 29 mmol/L 21-29 BASE EXCESS VENOUS (BEAKER) (test code = 704) 3.3 mmol/L -2.0-3.0 H PATIENT TEMPERATURE (BEAKER) (test code = 1818) 37.0 C FIO2 (BEAKER) (test code = 1819) 100.0 % CBC W/PLT COUNT & AUTO [id number] 12:08:00* Test Item Value Reference Range Interpretation Comments WHITE BLOOD CELL COUNT (BEAKER) (test code = 775) 7.9 K/ L 3.5- 10.5 RED BLOOD CELL COUNT (BEAKER) (test code = 761) 4.34 M/ L 4.63-6 .08 L HEMOGLOBIN (BEAKER) (test code = 410) 12.6 GM/DL 13.7-17.5 L HEMATOCRIT (BEAKER) (test code = 411) 37.9 % 40.1-51.0 L MEAN CORPUSCULAR VOLUME (BEAKER) (test code = 753) 87.3 fL 79. 0-92.2 MEAN CORPUSCULAR HEMOGLOBIN (BEAKER) (test code = 751) 29.0 pg 25.7-32.2 MEAN CORPUSCULAR HEMOGLOBIN CONC (BEAKER) (test code = 752) 33.2 GM/DL 32.3-36.5 RED CELL DISTRIBUTION WIDTH (BEAKER) (test code = 412) 12.0 % 11.6-14.4 PLATELET COUNT (BEAKER) (test code = 756) 315 K/CU MM 150-450 MEAN PLATELET VOLUME (BEAKER) (test code = 754) 9.9 fL 9.4-12 .4 NUCLEATED RED BLOOD CELLS (BEAKER) (test code = 413) 0 /100 WBC 0 -0 NEUTROPHILS RELATIVE PERCENT (BEAKER) (test code = 429) 70 % LYMPHOCYTES RELATIVE PERCENT (BEAKER) (test code = 430) 16 % MONOCYTES RELATIVE PERCENT (BEAKER) (test code = 431) 7 % EOSINOPHILS RELATIVE PERCENT (BEAKER) (test code = 432) 4 % BASOPHILS RELATIVE PERCENT (BEAKER) (test code = 437) 1 % NEUTROPHILS ABSOLUTE COUNT (BEAKER) (test code = 670) 5.58 K/ L 1.78-5.38 H LYMPHOCYTES ABSOLUTE COUNT (BEAKER) (test code = 414) 1.29 K/ L 1.32-3.57 L MONOCYTES ABSOLUTE COUNT (BEAKER) (test code = 415) 0.56 K/ L 0. 30-0.82 EOSINOPHILS ABSOLUTE COUNT (BEAKER) (test code = 416) 0.34 K/ L 0.04-0.54 BASOPHILS ABSOLUTE COUNT (BEAKER) (test code = 417) 0.08 K/ L 0. 01-0.08 IMMATURE GRANULOCYTES-RELATIVE PERCENT (BEAKER) (test code = 2801) 1 % 0-1 POCT-GLUCOSE [id number] 11:54:00* Test Item Value Reference Range Interpretation Comments POC-GLUCOSE METER (BEAKER) (test code = 1538) > mg/dL 70-110 HH OUTSIDE MEASURING RANGETESTED AT [address] [address] Bedside [id number] 15:53:00* Test Item Value Reference Range Interpretation Comments Bedside Glucose (test code = 94460-4) 125 70-120 H Meter ID: [id number] [facility] 2017-11-13 07:42:00* Test Item Value Reference Range Interpretation Comments Sodium Level (test code = 2951-2) 135 136-145 L [facility] [id number] 07:42:00* Test Item Value Reference Range Interpretation Comments Potassium Level (test code = 2823-3) 4.0 3.5-5.1 [facility]Chloride [id number] 07:42:00* Test Item Value Reference Range Interpretation Comments Chloride Level (test code = 2075-0) 104 98-107 [facility]cosCarbon Dioxide [id number] 07:42:00* Test Item Value Reference Range Interpretation Comments Carbon Dioxide Level (test code = 2028-9) 22 22-29 [facility]cosAnion [id number] 07:42:00* Test Item Value Reference Range Interpretation Comments Anion Gap (test code = 51709-1) 13.0 8-16 [facility]cosBlood Urea [id number] 07:42:00* Test Item Value Reference Range Interpretation Comments Blood Urea Nitrogen (test code = 3094-0) 26 7-26 [facility]Creatinine2018-04-14 07:42:00* Test Item Value Reference Range Interpretation Comments Creatinine (test code = 2160-0) 1.42 0.72-1.25 H [facility]cosBUN/Creatinine [id number] 07:42:00* Test Item Value Reference Range Interpretation Comments BUN/Creatinine Ratio (test code = 3097-3) 18 6-25 [facility]cosEstimat Glomerular Filtration Rate 2017-11-13 07:42:00* Test Item Value Reference Range Interpretation Comments Estimat Glomerular Filtration Rate (test code = 19030-2) 49 >60 L Ranges were taken from the National Kidney Disease Education Program and the [facility] Kidney Foundation literature.Reference ranges:60 or greater: Ijiady88-19 ( for 3 consecutive months): Chronic kidney disease 15 or less: Kidney failureChristus Santa [facility] Hospital – [facility] MarcosGlucose [id number] 07:42:00* Test Item Value Reference Range Interpretation Comments Glucose Level (test code = LSQ7172) 120 74-118 H [facility]cosCalcium [id number] 07:42:00* Test Item Value Reference Range Interpretation Comments Calcium Level (test code = 71543-6) 8.9 8.4-10.2 [facility]cosMagnesium [id number] 07:42:00* Test Item Value Reference Range Interpretation Comments Magnesium Level (test code = 14342-5) 1.6 1.3-2.1 [facility]cosWhite Blood [id number] 07:33:00* Test Item Value Reference Range Interpretation Comments White Blood Count (test code = 6690-2) 5.59 4.8-10.8 [facility]cosRed Blood [id number] 07:33:00* Test Item Value Reference Range Interpretation Comments Red Blood Count (test code = 789-8) 4.10 4.3-5.7 L [facility]cosHemoglobin2018-04-14 07:33:00* Test Item Value Reference Range Interpretation Comments Hemoglobin (test code = 87607-1) 12.2 14.0-18.0 L [facility]Hematocrit2018-04-14 07:33:00* Test Item Value Reference Range Interpretation Comments Hematocrit (test code = 4544-3) 36.2 38.2-49.6 L [facility]cosMean Corpuscular [id number] 07:33:00* Test Item Value Reference Range Interpretation Comments Mean Corpuscular Volume (test code = 787-2) 88.3 81-99 [facility]cosMean Corpuscular [id number] 07:33:00* Test Item Value Reference Range Interpretation Comments Mean Corpuscular Hemoglobin (test code = 785-6) 29.8 28-32 [facility]cosMean Corpuscular Hemoglobin Concent 2017-11-13 07:33:00* Test Item Value Reference Range Interpretation Comments Mean Corpuscular Hemoglobin Concent (test code = 786-4) 33.7 31-35 [facility]cosRed Cell Distribution [id number] 07:33:00* Test Item Value Reference Range Interpretation Comments Red Cell Distribution Width (test code = 11661-1) 13.8 11.7 -14.4 [facility]cosPlatelet [id number] 07:33:00* Test Item Value Reference Range Interpretation Comments Platelet Count (test code = 777-3) 254 140-360 [facility]cosNeutrophils (%) (Auto)2017-11-13 07:33:00 * Test Item Value Reference Range Interpretation Comments Neutrophils (%) (Auto) (test code = 19669-5) 59.1 38.7-80.0 [facility]cosLymphocytes (%) (Auto)2017-11-13 07:33:00 * Test Item Value Reference Range Interpretation Comments Lymphocytes (%) (Auto) (test code = 736-9) 22.0 18.0-39.1 [facility]cosMonocytes (%) (Auto)2017-11-13 07:33:00* Test Item Value Reference Range Interpretation Comments Monocytes (%) (Auto) (test code = 5905-5) 9.7 4.4-11.3 [facility]Eosinophils (%) (Auto)2017-11-13 07:33:00 * Test Item Value Reference Range Interpretation Comments Eosinophils (%) (Auto) (test code = 713-8) 7.2 0.0-6.0 H [facility]Basophils (%) (Auto)2017-11-13 07:33:00* Test Item Value Reference Range Interpretation Comments Basophils (%) (Auto) (test code = 706-2) 1.8 0.0-1.0 H [facility]cosIM GRANULOCYTES %2017-11-13 07:33:00* Test Item Value Reference Range Interpretation Comments IM GRANULOCYTES % (test code = IM GRANULOCYTES %) 0.2 0.0- 1.0 [facility]cosNeutrophils # (Auto)2017-11-13 07:33:00* Test Item Value Reference Range Interpretation Comments Neutrophils # (Auto) (test code = 751-8) 3.3 2.1-6.9 [facility]cosLymphocytes # (Auto)2017-11-13 07:33:00* Test Item Value Reference Range Interpretation Comments Lymphocytes # (Auto) (test code = 44924-9) 1.2 1.0-3.2 [facility]cosMonocytes # (Auto)2017-11-13 07:33:00* Test Item Value Reference Range Interpretation Comments Monocytes # (Auto) (test code = 742-7) 0.5 0.2-0.8 [facility]Eosinophils # (Auto)2017-11-13 07:33:00* Test Item Value Reference Range Interpretation Comments Eosinophils # (Auto) (test code = 711-2) 0.4 0.0-0.4 [facility]Basophils # (Auto)2017-11-13 07:33:00* Test Item Value Reference Range Interpretation Comments Basophils # (Auto) (test code = 704-7) 0.1 0.0-0.1 [facility]cosAbsolute Immature Granulocyte (auto 2017-11-13 07:33:00* Test Item Value Reference Range Interpretation Comments Absolute Immature Granulocyte (auto ([place] t code = Absolute Immature Granulocyte (auto) 0.01 0-0.1 [facility]cosProthrombin [id number] 01:29:00* Test Item Value Reference Range Interpretation Comments Prothrombin Time (test code = 5902-2) 12.5 11.9-14.5 [facility]cosProthromb Time International Ratio 2017-11-12 01:29:00* Test Item Value Reference Range Interpretation Comments Prothromb Time International Ratio (test code = 6301-6) 1.01 Oral Anticoagulant Therapy INR Values:1. Low Intensity Therapy 1.5 - 2.02 . Moderate Intensity Therapy 2.0 - 3.03. High Intensity Therapy(1) 2.5 - 3. 54. High Intensity Therapy(2) 3.0 - 4.05. Panic Value INR > 5.0 [facility] MarcosActivated Partial Thromboplast Time 2017-11-12 01:29:00* Test Item Value Reference Range Interpretation Comments Activated Partial Thromboplast Time (test code = 40775-8) 30.0 23.8-35.5 [facility] Lufkintool Occult [id number] 01:00:00* Test Item Value Reference Range Interpretation Comments Stool Occult Blood (test code = 2335-8) NEGATIVE NEGATIVE [facility] MarcosTotal [id number] 00:07:00* Test Item Value Reference Range Interpretation Comments Total Bilirubin (test code = 1975-2) 0.3 0.2-1.2 [facility] MarcosAspartate Amino Transf (AST/SGOT) 2017-11-12 00:07:00* Test Item Value Reference Range Interpretation Comments Aspartate Amino Transf (AST/SGOT) (test code = Aspartate Amino Transf (AST/SGOT)) 41 5-34 H [facility] MarcosAlanine Aminotransferase (ALT/SGPT) 2017-11-12 00:07:00* Test Item Value Reference Range Interpretation Comments Alanine Aminotransferase (ALT/SGPT) (test code = 1742-6) 34 0-55 [facility]ict[facility] [id number] 00:07:00* Test Item Value Reference Range Interpretation Comments Total Protein (test code = 2885-2) 7.8 6.5-8.1 [facility]cosAlbumin2018-04-13 00:07:00* Test Item Value Reference Range Interpretation Comments Albumin (test code = 1751-7) 4.1 3.5-5.0 [facility]cosGlobulin2018-04-13 00:07:00* Test Item Value Reference Range Interpretation Comments Globulin (test code = 75593-4) 3.7 2.3-3.5 H [facility]cosAlbumin/Globulin [id number] 00:07:00 * Test Item Value Reference Range Interpretation Comments Albumin/Globulin Ratio (test code = 1759-0) 1.1 0.8-2.0 [facility]cosAlkaline [id number] 00:07:00* Test Item Value Reference Range Interpretation Comments Alkaline Phosphatase (test code = 6768-6) 64 40-150 [facility]cosAmylase [id number] 00:07:00* Test Item Value Reference Range Interpretation Comments Amylase Level (test code = 1798-8) 51 25-125 [facility] MarcosLipase2018-04-13 00:07:00* Test Item Value Reference Range Interpretation Comments Lipase (test code = 3040-3) 36 8-78 [facility] MarcosUrine [id number] 23:55:00* Test Item Value Reference Range Interpretation Comments Urine WBC (test code = 5821-4) 0-5 0-5 [facility] MarcosUrine [id number] 23:55:00* Test Item Value Reference Range Interpretation Comments Urine RBC (test code = 94102-2) 0-5 0-5 [facility] MarcosUrine [id number] 23:55:00* Test Item Value Reference Range Interpretation Comments Urine Bacteria (test code = 38668-2) NONE NONE [facility]cosUrine Epithelial [id number] 23:55:00 * Test Item Value Reference Range Interpretation Comments Urine Epithelial Cells (test code = 37885-4) RARE NONE [facility] MarcosUrine [id number] 23:43:00* Test Item Value Reference Range Interpretation Comments Urine Color (test code = 5778-6) YELLOW YELLOW [facility] MarcosUrine [id number] 23:43:00* Test Item Value Reference Range Interpretation Comments Urine Clarity (test code = 26656-5) CLEAR CLEAR [facility] MarcosUrine Specific [id number] 23:43:00 * Test Item Value Reference Range Interpretation Comments Urine Specific [place] (test code = 5811-5) 1.015 1.010-1.02 5 [facility] MarcosUrine [id number] 23:43:00* Test Item Value Reference Range Interpretation Comments Urine pH (test code = 89580-5) 6 5-7 [facility]cosUrine Leukocyte [id number] 23:43:00* Test Item Value Reference Range Interpretation Comments Urine Leukocyte Esterase (test code = 5799-2) NEGATIVE NEGATIVE [facility] MarcosUrine [id number] 23:43:00* Test Item Value Reference Range Interpretation Comments Urine Nitrite (test code = 25244-0) NEGATIVE NEGATIVE [facility] [id number] 23:43:00* Test Item Value Reference Range Interpretation Comments Urine Protein (test code = 5804-0) NEGATIVE NEGATIVE [facility] Glucose (UA)2017-11-11 23:43:00* Test Item Value Reference Range Interpretation Comments Urine Glucose (UA) (test code = 2349-9) NEGATIVE NEGATIVE [facility] [id number] 23:43:00* Test Item Value Reference Range Interpretation Comments Urine Ketones (test code = 36030-7) TRACE NEGATIVE H [facility] [id number] 23:43:00* Test Item Value Reference Range Interpretation Comments Urine Urobilinogen (test code = 32062-4) 0.2 0.2-1 [facility] [id number] 23:43:00* Test Item Value Reference Range Interpretation Comments Urine Bilirubin (test code = 1978-6) NEGATIVE NEGATIVE [facility] [id number] 23:43:00* Test Item Value Reference Range Interpretation Comments Urine Blood (test code = 02208-7) NEGATIVE NEGATIVE [facility] [address] [place] [address] Patient Name: JUAN MCKEON MR #: [id number] : 1945 Age/Sex: 72/M Req #: [id number] Adm Physician: Ordered by: МАРИНА RIVERA MD Report #: [id number] Location: ER Room/Bed: Procedure: [id number] DX/CHEST 2 VIEWS Exam Date: Exam Time: REPORT STATUS: Signed EXAM: CH EST 2 VIEWS, PA and lateral INDICATION: Diarrhea, black stools COMPARISON: N one FINDINGS: LINES/TUBES: None LUNGS: No consolidations or edema. V olume loss of the right lung compared to the left likely from prior surgery. S carring right lung base. PLEURA: No effusions or pneumothorax. HEART A ND MEDIASTINUM: Normal size and contour. BONES AND SOFT TISSUES: No acute f indings. Old right-sided rib fractures. IMPRESSION: No acute thoracic abn ormality. Signed by: Dr. Alba Vasquez M.D. on 11/12/2017 1:28 AM Dictated By: ALBA VASQUEZ MD 7 Transcribed By: AG on 11/12/17127 COPY TO: МАРИНА CORLEY MD CT ABDOMEN/PELVIS [place] [address] Patient Name: JUAN MCKEON MR #: [id number] : 1945 Age/Sex: 72/M Req #: [id number] Adm Physician: Ordered by: МАРИНА RIVERA MD Report #: [id number] Location: ER Room/Bed: Procedure: [id number] CT/CT ABDOMEN/PELVIS WO Sujata marinelli Date: Exam Time: REPORT STATUS: Signed E XAM: CT ABDOMEN AND PELVIS without IV CONTRAST INDICATION: Diarrhea, black st ools COMPARISON: CT of the abdomen and pelvis April 06, 2016 TECHNIQUE: The abdomen and pelvis were scanned using a multidetector helical scanner. Cor onal and sagittal reformations were obtained. Routine protocol performed. IV Contrast: None Oral Contrast: Gastrografin CTDIvol has been reviewed. It is below the limits set by the Radiation Protocol Committee (RPC). FINDINGS: LOWER THORAX: No consolidations LIVER: No masses BILIARY: Normal gall bladder. No ductal dilation. SPLEEN: No masses PANCREAS: No masses ADRENALS: No nodules RIGHT KIDNEY: No nephroureterolithiasis or hydronephro sis. LEFT KIDNEY: No nephroureterolithiasis or hydronephrosis. GI TRA CT: Nonspecific mild wall thickening of the mid transverse colon, [facility]. There are a few sigmoid colon diverticula. VESSELS: Mode rate atherosclerotic changes of the abdominal aorta with stable focal outpouch ing up to 2.3 cm. PERITONEUM/RETROPERITONEUM: No free air or fluid LYMPH NOD ES: No lymphadenopathy REPRODUCTIVE ORGANS: Normal BLADDER: Lobulated con tour of the bladder. No wall thickening. SOFT TISSUES: Normal BONES: No s uspicious bone lesions. Advanced degenerative changes L4/L5. IMPRESSION: Nonspecific mild wall thickening of the mid transverse colon, similar in appea nathaniel to 2016. Few scattered colonic diverticula without evidence of diverticu litis. No bowel obstruction. Signed by: Dr. Alba Vasquez M.D. on 1:27 AM Dictated By: ALBA VASQUEZ MD 6 Transcribed By: AG on 11/12/17126 COPY TO: МАРИНА RIVERA MD
--- OUTSIDE RECORDS SUMMARY | 2020-05-03 13:49 | XMS REPORT | Clinical Summary ---
Author Author OLES[facility] Address Unknown Phone Unavailable Care Team Providers Care Floor Layer Helper Name Role Phone Trinity Reagan PCP Unavailable [...] Type 2 diabetes mellitus with complication, with long -term current use of 04/28/2018 insulin Hyperglycemia 04/28/2018 Spinal stenosis, lumbar region, with neurogenic renea ication 08/28/2014 Social History Date Tobacco Use Types Packs/Day Years Used Never Smoker Smokeless Tobacco: Never Used Alcohol Use Drinks/Week oz/Week Comments No Sex Assigned at Date Recorded Not on file Industry Job Start Date Occupation Not on file Not on file Not on file Travel End Travel History Travel Start No recent travel history available. Last Filed Vital Signs Not on file Plan of Treatment Not on file Implants Device Identifier Shelf Expiration Date Model / Serial / L ot Implanted Type Area Manufactur er 09/01/2015 [id number] / / [id number] Sealant,Floseal Hemostatic Matrix Cement/Tuan N/A: Back SALDIVAR 10ml - [id number] ler/[employer] Implanted: Qty: 1 on 08/28/2014 by ve FOR ZENOBIA Oh, Dain Blackman MD [employer] Results Not on fileafter 05/03/2019 Insurance Payer Benefit Subscriber ID Type Phone Address Plan / Group [facility] xxxxxxxxxxx MEDICARE ADV Advance Directives For more information, please contact: [facility] [address] [place] [address] Date Inactivated Comments Code Status Date Activated 08/28/2014 7:11 PM Full Code 08/28/2014 6:08 AM This code status was determined by: Patient
--- NOTE | 2020-05-03 14:15 | Emergency Department Note ---
History of Present Illnes History of Present Illness Chief Complaint: Neurological History of Present Illness This is a 74 year old male pt c/o numbness to the left side of the face and arms, pt states that the sensory deficit started 35 mins prior to arrival, pt presents with a left sided facial droop and tearing to the left eye, NIHSS 0, no drift to all extremities, no slurred speech, pt is AAOX4. Historian: Patient Arrival Mode: Car Salesperson Handbags Required: No Onset (how long ago): minute(s) (35) Location: LEFT FACE Quality: WEAK & NUMB Radiation: Reports non-radiation Severity: moderate Onset quality: gradual Timing of current episode: constant Progression: unchanged Chronicity: new Context: Denies recent illness Relieving factors: none Exacerbating factors: none Associated symptoms: Reports denies other symptoms Past Medical/Family History Physician Review I have reviewed the patient's past medical and family history. Any updates have been documented here. Past Medical History Recent Fever: No Clinical Suspicion of Infectio: No New/Unexplained Change in Ment: No Past Medical History: Hypertension, Diabetes Other Medical History: COLITIS Past Surgical History: None Other Surgery: Back surgery COLONOSCOPY RIGHT TESTICLE REMOVED RUL REMOVED 1973 DUE TO "ABNORMAL GROWTH" HERNIA REPAIR X2 Social History Smoking Cessation: Never Smoker Counseling Performed: No Alcohol Use: None Any Illegal Drug Use: No TB Exposure/Symptoms: No Physically hurt or threatened: No Family History Family history of heart diseas: No Other Last Tetanus: UTD Review of Systems Review of Systems Constitutional: Reports no symptoms EENTM: Reports no symptoms Cardiovascular: Reports no symptoms; Denies chest pain Respiratory: Reports no symptoms; Denies dyspnea Gastrointestinal: Reports no symptoms Genitourinary: Reports no symptoms Musculoskeletal: Reports no symptoms Integumentary: Reports no symptoms Neurological: Reports as per HPI, Reports numbness (ONLY LEFT FACE), Reports weakness (ONLY LEFT FACE); Denies headache Psychological: Reports no symptoms Endocrine: Reports no symptoms Hematological/Lymphatic: Reports no symptoms Physical Exam Related Data Allergies: Coded Allergies: No Known Allergies (Unverified , 04/06/16) Triage Vital Signs Vital Signs Date Time Temp Pulse Resp B/P (MAP) Pulse Ox O2 Delivery O2 Flow Rate FiO2 05/03/20 12:42 98.4 95 18 165/77 100 Room Air Vital signs reviewed: Yes Physical Exam CONSTITUTIONAL Constitutional: Present well-developed, Present well-nourished HENT HENT: Present normocephalic, Present atraumatic, Present oropharynx clear/moist, Present nose normal HENT L/R: Present left ext ear normal, Present right ext ear normal EYES Eyes: Reports PERRL, Reports conjunctivae normal NECK Neck: Present ROM normal PULMONARY Pulmonary: Present effort normal, Present breath sounds normal CARDIOVASCULAR Cardiovascular: Present regular rhythm, Present heart sounds normal, Present capillary refill normal, Present normal rate GASTROINTESTINAL Abdominal: Present soft, Present nontender, Present bowel sounds normal GENITOURINARY Genitourinary: Present exam deferred SKIN Skin: Present warm, Present dry MUSCULOSKELETAL Musculoskeletal: Present ROM normal NEUROLOGICAL Neurological: Present alert, Present oriented x 3, Present cranial nerve deficit (LEFT FACIAL DROOP AFFECTING FOREHEAD ALSO, WITH DECR TOUCH SENSATION LEFT FACE, UNABLE TO COMPLETELY CLOSE LEFT EYELID); Absent weakness (5/5 STR ALL EXTREMITIES) PSYCHOLOGICAL Psychological: Present mood/affect normal, Present judgement normal Results Laboratory Result Diagram: 05/03/20 1249 05/03/20 1249 Laboratory Laboratory Tests Test 05/03/20 12:49 White Blood Count 7.35 x10e3/uL (4.8-10.8) Red Blood Count 5.27 x10e6/uL (4.3-5.7) Hemoglobin 15.4 g/dL (14.0-18.0) Hematocrit 47.1 % (38.2-49.6) Mean Corpuscular Volume 89.4 fL (81-99) Mean Corpuscular Hemoglobin 29.2 pg (28-32) Mean Corpuscular Hemoglobin Concent 32.7 g/dL (31-35) Red Cell Distribution Width 13.7 % (11.7-14.4) Platelet Count 326 x10e3/uL (140-360) Neutrophils (%) (Auto) 57.9 % (38.7-80.0) Lymphocytes (%) (Auto) 26.9 % (18.0-39.1) Monocytes (%) (Auto) 9.1 % (4.4-11.3) Eosinophils (%) (Auto) 4.1 % (0.0-6.0) Basophils (%) (Auto) 1.5 % (0.0-1.0) Neutrophils # (Auto) 4.3 (2.1-6.9) Lymphocytes # (Auto) 2.0 (1.0-3.2) Monocytes # (Auto) 0.7 (0.2-0.8) Eosinophils # (Auto) 0.3 (0.0-0.4) Basophils # (Auto) 0.1 (0.0-0.1) Absolute Immature Granulocyte (auto 0.04 x10e3/uL (0-0.1) Prothrombin Time 12.5 seconds (11.9-14.5) Prothromb Time International Ratio 0.89 Activated Partial Thromboplast Time 27.6 seconds (23.8-35.5) Sodium Level 140 mmol/L (136-145) Potassium Level 4.2 mmol/L (3.5-5.1) Chloride Level 101 mmol/L (98-107) Carbon Dioxide Level 28 mmol/L (22-29) Anion Gap 15.2 mmol/L (8-16) Blood Urea Nitrogen 18 mg/dL (7-26) Creatinine 1.55 mg/dL (0.72-1.25) Estimat Glomerular Filtration Rate 44 ML/MIN (60-) BUN/Creatinine Ratio 12 (6-25) Glucose Level 98 mg/dL (74-118) Calcium Level 10.0 mg/dL (8.4-10.2) Total Bilirubin 0.5 mg/dL (0.2-1.2) Aspartate Amino Transf (AST/SGOT) 32 IU/L (5-34) Alanine Aminotransferase (ALT/SGPT) 37 IU/L (0-55) Alkaline Phosphatase 89 IU/L (40-150) Creatine Kinase 300 IU/L (30-200) Creatine Kinase MB 3.60 ng/mL (0-5.0) Troponin I 0.003 ng/mL (0-0.300) Total Protein 8.8 g/dL (6.5-8.1) Albumin 4.1 g/dL (3.5-5.0) Globulin 4.7 g/dL (2.3-3.5) Albumin/Globulin Ratio 0.9 (0.8-2.0) Lab results reviewed: Yes Imaging Imaging results reviewed: Yes Procedures 12 Lead ECG Interpretation ECG Interpretation : ECG: ECG 1 Salesperson Handbags: Interpreted by ED physician Date: May 03, 2020 Time: 12:47 Rhythm: sinus rhythm Rate: normal BPM: 89 QRS axis: normal ST segments normal: Yes T waves flattening: I, aVL Clinical Impression: non-specific ECG Assessment & Plan Medical Decision Making MDM PT WITH DM, HTN, CHOL PRESENTS WITH LEFT FACIAL DROOP INVOLVING FOREHEAD - CBC, CHEM, ECG, CARDIAC, CT HEAD - MOST LIKELY LO'S PALSY BUT MULTIPLE CVA RF'S SO WILL R/O CVA, STEMI, DYSRHYTHMIA SUCH AFIB/FLUTTER CAUSING EMBOLI, BRAIN MASS Reassessment Reassessment LO'S PALSY - DC HOME, VALTREX 1 GM TID X 1 WEEK, PT DOES NOT WANT STEROIDS. F/U PCP AND DR Mak HOGUE, RTED PRN, ARTIFICIAL TEARS/TAPE EYE CLOSED AT NIGHT, ETC Assessment & Plan Final Impression: (1) Lo's palsy Depart Disposition: HOME, SELF-CARE Last Vital Signs Date Time Temp Pulse Resp B/P (MAP) Pulse Ox O2 Delivery O2 Flow Rate FiO2 05/03/20 12:42 98.4 95 18 165/77 100 Room Air Home Meds Reported Medications Aspirin (ASPIR 81) 81 Mg Tablet.dr, 81 MG PO DAILY 11/11/17 Insulin Glargine (LANTUS 3ML PEN) 100 Units/1 Ml Inj, 40 UNITS SC HS 11/11/17 Mesalamine (PENTASA) 500 Mg Capcr, 800 MG PO DAILY, CAP 11/11/17 Atorvastatin Calcium (ATORVASTATIN CALCIUM) 20 Mg Tablet, 80 MG PO HS, #30 TAB 11/11/17 Omeprazole (OMEPRAZOLE) 40 Mg Capsule.dr, 20 MG PO DAILY 11/11/17 Glimepiride (GLIMEPIRIDE) 2 Mg Tablet, 2 MG PO DAILY, TAB 11/11/17 Trazodone Hcl (TRAZODONE HCL) 50 Mg Tablet, 150 MG PO HS, #30 TAB 11/11/17 Lisinopril (LISINOPRIL) 2.5 Mg Tablet, 5 MG PO DAILY, #30 TAB 11/11/17 Gabapentin (GABAPENTIN) 300 Mg Capsule, 600 MG PO TID, #60 CAP 11/11/17 Hydrochlorothiazide (HYDROCHLOROTHIAZIDE) 25 Mg Tablet, 50 MG PO DAILY, #30 TAB 11/11/17 ABDI HELM MD May 03, 2020 14:15
--- NOTE | 2020-05-03 14:18 | Diagnostic Imaging Report ---
CT BRAIN WO HISTORY: Left facial droop COMPARISON: None. Technique: Noncontrast axial scans were obtained from skull base to the vertex. Coronal and sagittal reconstructions obtained from the axial data. One or more of the following dose reduction techniques were used: Automated exposure control, adjustment of the mA and/or kV according to patient size, and/or utilization of iterative reconstruction technique. DISCUSSION: Scalp/Skull: Unremarkable. Brain sulci: Mildly prominent. Ventricles: Compensatory dilatation. Extra-axial spaces: No masses or fluid collections. Carotid siphon calcifications are present. Parenchyma: Mild bilateral deep white matter hypodensity is likely chronic microvascular ischemic change. Otherwise, no masses, hemorrhage, or large vascular territory acute infarct. Dural sinuses: No abnormal densities. Sellar/Suprasellar region: Intact. Skull base: Intact. Incidental findings: None. IMPRESSION: 1. No acute intracranial abnormalities. 2. Mild supratentorial chronic microvascular ischemic change. Mild generalized cerebral volume loss. Signed by: Dr. Emmett Sharif M.D. on 05/03/2020 2:15 PM
[2020-05-03 15:05] VITALS: BP 132/75
== END 2020-05-03 15:12 | disposition home or self-care (01) ==
LOC: ER 13:01
DX: G51.0 Bell's palsy (principal); I10 Essential (primary) hypertension; E11.9 Type 2 diabetes mellitus without complications; Z87.19 Personal history of other diseases of the digestive system
CPT/HCPCS: 36415; 70450; 80053; 82550; 82553; 84484; 85025; 85610; 85730; 93005; 99284

== ENCOUNTER 2022-03-04 07:05 | Observation (INO) | payer MEDICARE ==
[~2022-03-04] VITALS: Ht 172.7 cm; Wt 87.5 kg
[2022-03-04] MEDS ORDERED: SODIUM CHLORIDE FLUSH 10 ML SYR IV PRN (07:30)
[2022-03-04 07:32] LABS: BASOPHILS # (AUTO) 0.1 (0.0-0.1); BASOPHILS % 1.5 % (0.0-1.0); EOSINOPHILS # (AUTO) 0.5 (0.0-0.4); EOSINOPHILS % 5.9 % (0.0-6.0); HEMATOCRIT 45.4 % (38.2-49.6); HEMOGLOBIN 14.6 g/dL (14.0-18.0); LYMPHOCYTES # (AUTO) 1.8 (1.0-3.2); MEAN CORPUSCULAR HEMOGLOBIN 30.2 pg (28-32); MEAN CORPUSCULAR HGB CONC 32.2 g/dL (31-35); MONOCYTES # (AUTO) 0.8 (0.2-0.8); MONOCYTES % 8.8 % (4.4-11.3); NEUTROPHILS # (AUTO) 5.3 (2.1-6.9); NEUTROPHILS % 62.3 % (38.7-80.0); PLATELET COUNT 244 x10e3/uL (140-360); RED BLOOD COUNT 4.83 x10e6/uL (4.3-5.7); RED CELL DISTRIBUTION WIDTH 13.5 % (11.7-14.4)
[2022-03-04 07:49] LABS: INR 0.87; PROTHROMBIN TIME 12.6 seconds (11.9-14.5)
[2022-03-04 07:58] LABS: ALANINE AMINOTRANSFERASE 23 IU/L (0-55); ALBUMIN 3.7 g/dL (3.5-5.0); ALBUMIN/GLOBULIN RATIO 0.9 (0.8-2.0); ALKALINE PHOSPHATASE 81 IU/L (40-150); ANION GAP 14.4 mmol/L (8-16); BLOOD UREA NITROGEN 33 mg/dL (7-26); BUN/CREATININE RATIO 18 (6-25); CALCIUM 8.9 mg/dL (8.4-10.2); CARBON DIOXIDE 25 mmol/L (22-29); CHLORIDE 105 mmol/L (98-107); CREATININE, SERUM 1.79 mg/dL (0.72-1.25); GLUCOSE 200 mg/dL (74-118); POTASSIUM 4.4 mmol/L (3.5-5.1); SODIUM 140 mmol/L (136-145)
[2022-03-04 09:33] LABS: CLARITY,URINE CLEAR (CLEAR); COLOR,URINE YELLOW (YELLOW); KETONES,URINE NEGATIVE (NEGATIVE); LEUKOCYTE ESTERASE ,URINE NEGATIVE (NEGATIVE); NITRITE,URINE NEGATIVE (NEGATIVE); PROTEIN,URINE DIPSTICK NEGATIVE (NEGATIVE); URINE UROBILINOGEN 0.2 mg/dL (0.2 - 1)
[2022-03-04 09:45] LABS: AMPHETAMINES SCREEN,URINE NEGATIVE (NEGATIVE); BENZODIAZEPINES SCREEN,URINE NEGATIVE (NEGATIVE); PHENCYCLIDINE SCREEN,URINE NEGATIVE (NEGATIVE)
[2022-03-04 09:46] LABS: BACTERIA,URINE RARE /HPF; EPITHELIAL CELLS,URINE FEW /LPF; WBC,URINE (MAN) 0-5 /HPF (0-5)
[2022-03-04] MEDS ORDERED: DEXTROSE 50% SYRINGE 50 ML IV PRN (10:00)
[2022-03-04] MEDS ORDERED: ONDANSETRON HCL INJ 2MG/ML 2ML 2 MG/ML VIAL IV PRN (10:00)
[2022-03-04] MEDS: SODIUM CHLORIDE 0.9% 1000ML 1,000 ML IV SCH ×2 (10:34→20:55)
[2022-03-04] MEDS ORDERED: ATORVASTATIN CA10 MG PO (10:41)
[2022-03-04] MEDS ORDERED: METOPROLOL TART25 MG PO (10:41)
[2022-03-04] MEDS ORDERED: NOVOLOG100 UNIT/1 SC (10:49)
[2022-03-04] MEDS ORDERED: OZEMPIC0.25 MG/0. SC (10:49)
[2022-03-04] MEDS ORDERED: FLOMAX0.4 MG PO (10:49)
[2022-03-04] MEDS ORDERED: INSULIN GL100 UNIT/3 SQ (10:49)
[2022-03-04] MEDS ORDERED: NEURONTIN300 MG PO ×2 (10:49)
[2022-03-04] MEDS ORDERED: VENTOLIN HFA18 GM INH (10:49)
[2022-03-04] MEDS ORDERED: JARDIANCE10 MG PO (10:49)
[2022-03-04] MEDS: INSULIN REGULAR, HUMAN 100 UNIT/1 ML SQ SCH ×3 (12:09→20:49)
[2022-03-04 14:15] VITALS: BP 163/70
[2022-03-04 15:48] VITALS: BP 163/70
[2022-03-04] MEDS ORDERED: MULTI-VITAMIN1 EACH PO (16:57)
[2022-03-04] MEDS ORDERED: ZINC PO (17:02)
[2022-03-04] MEDS ORDERED: PREVAGEN PO (17:02)
[2022-03-04] MEDS ORDERED: VITAMIN D3 PO (17:02)
[2022-03-04] MEDS ORDERED: VITAMIN C1000 MG PO (17:02)
[2022-03-04] MEDS ORDERED: GLUCOSAMINE1000 MG PO (17:02)
[2022-03-04 20:00] VITALS: BP 131/68
[2022-03-04 21:00] VITALS: BP 131/68
[2022-03-05 00:32] VITALS: BP 114/58
[2022-03-05 05:16] LABS: BASOPHILS # (AUTO) 0.1 (0.0-0.1); BASOPHILS % 1.6 % (0.0-1.0); EOSINOPHILS # (AUTO) 0.4 (0.0-0.4); EOSINOPHILS % 5.4 % (0.0-6.0); HEMATOCRIT 41.5 % (38.2-49.6); HEMOGLOBIN 13.2 g/dL (14.0-18.0); LYMPHOCYTES # (AUTO) 1.5 (1.0-3.2); LYMPHOCYTES % 20.9 % (18.0-39.1); MEAN CORPUSCULAR HEMOGLOBIN 29.9 pg (28-32); MEAN CORPUSCULAR HGB CONC 31.8 g/dL (31-35); MEAN CORPUSCULAR VOLUME 93.9 fL (81-99); MONOCYTES # (AUTO) 0.6 (0.2-0.8); MONOCYTES % 9.1 % (4.4-11.3); NEUTROPHILS # (AUTO) 4.4 (2.1-6.9); NEUTROPHILS % 62.6 % (38.7-80.0); PLATELET COUNT 230 x10e3/uL (140-360); RED BLOOD COUNT 4.42 x10e6/uL (4.3-5.7); RED CELL DISTRIBUTION WIDTH 13.4 % (11.7-14.4)
[2022-03-05] MEDS: SODIUM CHLORIDE 0.9% 1000ML 1,000 ML IV SCH (05:27)
[2022-03-05 06:02] LABS: ANION GAP 11.5 mmol/L (8-16); CREATININE, SERUM 1.39 mg/dL (0.72-1.25); POTASSIUM 4.5 mmol/L (3.5-5.1)
[2022-03-05 08:00] VITALS: BP 158/63
[2022-03-05] MEDS ORDERED: ATORVASTATIN 10 MG TAB PO SCH (09:00)
[2022-03-05] MEDS ORDERED: MESALAMINE 400 MG CAP PO SCH (09:00)
[2022-03-05] MEDS ORDERED: PANTOPRAZOLE SOD 40 MG TABEC PO SCH (09:00)
[2022-03-05] MEDS ORDERED: TAMSULOSIN HCL 0.4 MG CAP PO SCH (09:00)
[2022-03-05] MEDS ORDERED: EMPAGLIFLOZIN 10 MG TABLET PO SCH (09:00)
[2022-03-05] MEDS ORDERED: METOPROLOL TARTRATE 25 MG TAB PO SCH (09:00)
[2022-03-05 09:02] VITALS: BP 158/63
[2022-03-05] MEDS ORDERED: ONDANSETRON HCL 4 MG ORAL DISINTEGRATING TAB PO PRN (11:30)
== END 2022-03-05 11:39 | disposition home or self-care (01) ==
LOC: ER 07:09 → ERHOLD 10:02 → MED/SURG3 14:15
PROVIDERS: ADMIT Internal Medicine; ATTEND Internal Medicine
DX: H53.2 Diplopia (principal); N17.9 Acute kidney failure, unspecified; E11.65 Type 2 diabetes mellitus with hyperglycemia; K52.9 Noninfective gastroenteritis and colitis, unspecified; Z20.822 Contact with and (suspected) exposure to COVID-19; Z79.4 Long term (current) use of insulin
CPT/HCPCS: 0223U; 36415 ×2; 70450; 70551; 71045; 80048; 80053; 80307; 81001; 82948 ×2; 83036; 84484; 85025 ×2; 85610; 85730; 93005; 99284; G0378 ×2; J1817; J7030; S0164